=== PATIENT | female | born 1995 | race Caucasian/White ===

== ENCOUNTER 2025-02-20 16:38 | Emergency (ER) | payer OTHER, SELFPAY ==
[2025-02-20 16:47] VITALS: BP 112/74; PULSE 80; RESP 18; TEMP 36.6; O2SAT 98; BMI 22.1
--- NOTE | 2025-02-20 16:48 | ED.GENADULT ---
HPI - General Adult General Chief complaint: Allergic Reaction Stated complaint: allergic reaction Time Seen by Provider: 02/20/25 17:21 Source: patient Mode of arrival: ambulatory Limitations: no limitations History of Present Illness ED Provider: Harsh Torres DO HPI narrative: 29-year-old female with past medical history of seasonal allergies but no other allergies, otherwise healthy presents to the ED for concerns for an allergic reaction with tightening of the throat and voice changes shortly after eating Esau fruit for the 1st time, onset shortly prior to arrival. Patient took too fast acting cetirizine tablets with significant improvement. She did not administer epinephrine prior to arrival. She denies development of rash, wheezing, abdominal pain, vomiting or diarrhea. She states she feels significantly improved and has been able to tolerate p.o. fluids. Related Data Previous Rx's ?Medication ?Instructions ?Recorded epinephrine 0.3 mg/0.3 mL 0.3 mg (0.3 mL) IM Q10M PRN 02/20/25 injection, auto-injector (EpiPen anaphylaxis #2 ea 2-Dilan) Allergies Allergy/AdvReac Type Severity Reaction Status Date / Time jackfruit Allergy Swelling Uncoded 02/20/25 16:49 Review of Systems Review of Systems: Yes all other systems are reviewed and are negative PMFSH Social History Social History Advance Directives: No Advance Directives Information Provided: Yes Do you have a plan to hurt others: No Plan Physical Exam ED Vital Signs: Vital Signs - 24 hr 02/20/25 16:47 02/20/25 17:07 Temperature 97.9 F Pulse Rate 80 72 Respiratory Rate 18 Blood Pressure 112/74 107/80 Pulse Oximetry 98 99 Oxygen Delivery Method Room Air BMI result Body Mass Index 22.1 Constitutional: ?Alert, oriented, speaking in full sentences HEENT: ?Normocephalic, atraumatic. ?Moist mucous membranes, no edema of the lips, tongue, palate or uvula, Mallampati class 1 Eyes: ?PERRL, EOMI Neck: ?Supple, nontender, no stridor Chest: ?No chest wall tenderness Respiratory: ?Lungs clear to auscultation, no increased work of breathing Cardio: ?Regular rate and rhythm, no murmur, 2+ radial and DP pulses symmetrically GI: ?Soft, nondistended, nontender Back: ?Normal range of motion, nontender Skin: ?No rash, no lesions Neuro: ?Alert and oriented to person, place and time, moves all 4 extremities, no focal deficits Extremities: ?No swelling or tenderness, full range of motion Psych: ?Calm, alert and cooperative, appropriate behavior Course Course Course Narrative: RME, this is a rapid medical exam performed by Mark Swann please refer to primary provider for complete H&P- 29 year old female presents for evaluation of a possible allergic reaction. She has no known allergies. She ate a esau fruit for the first time prior to arrival. She took 2 Zyrtec. She has mild retropharyngeal erythema, but no significant edema. No stridor on exam. No facial edema. Plan for prednisone, Pepcid and observation Medications Administered Discontinued Medications Generic Name Dose Route Start Last Admin Trade Name Freq PRN Reason Stop Dose Admin Famotidine 20 mg 02/20/25 16:51 02/20/25 17:06 Famotidine 20 Mg Tablet PO 02/20/25 16:52 20 mg ONCE ONE Administration Prednisone 60 mg 02/20/25 16:51 02/20/25 17:05 Prednisone 20 Mg Tablet PO 02/20/25 16:52 60 mg ONCE ONE Administration Medical Decision Making Medical Decision Making MDM Narrative: This is a well-appearing, vitally stable patient presenting with signs and symptoms concerning for angioedema prior to arrival. She did not require epinephrine prior to arrival nor did she require here. There are no signs of anaphylaxis. She is breathing without difficulty and has no findings on exam. She received famotidine and prednisone here with continued improvement. We discussed avoiding Esau fruit in the future and following up with an entrepreneurship program director. Prescribed epinephrine and recommended continuation of cetirizine for any residual symptoms over the course of several days. She voices clear understanding to return with any recurrent concerning symptoms. Admission/Observation Consideration of admission/observation: Escalation of care including admission/observation considered Discharge Plan Discharge Clinical Impression: Allergic reaction Qualifiers: Encounter type: initial encounter Qualified Code(s): T78.40XA - Allergy, unspecified, initial encounter Patient Disposition: Home, Self-Care Instructions: General Allergic Reaction (ED), Allergy Testing (ED) Additional Instructions: Your symptoms improved without needing epinephrine. You can continue cetirizine daily if you have any residual symptoms. Please return immediately if you develop any tightening of your throat, sensation of swelling with difficulty breathing or swallowing or development of any other concerning symptoms including an itchy rash with difficulty breathing, abdominal pain, vomiting or diarrhea. If you develop these symptoms at home, administer the EpiPen immediately and call the ambulance. Otherwise follow up with an entrepreneurship program director for comprehensive testing. We do not have an entrepreneurship program director associated with [facility] but hears a number you can try. Please call search other numbers if you can not make an appointment with them. [facility] [address],[facility]?[phone]:[phone] Prescriptions: New epinephrine [EpiPen 2-Dilan] 0.3 mg/0.3 mL auto-injector 0.3 mg IM Q10M PRN (Reason: anaphylaxis) Qty: 2 0RF Rx Instructions: for 2 doses Referrals: [facility] [Provider Group] Print Language: Macedonian
[2025-02-20] MEDS: predniSONE 20 MG TABLET 60 MG PO (17:05)
[2025-02-20] MEDS: Famotidine 20 MG TABLET PO (17:06)
[2025-02-20 17:07] VITALS: BP 107/80; PULSE 72; O2SAT 99
[2025-02-20 18:00] VITALS: BP 110/68; PULSE 68; RESP 18; TEMP 36.7; O2SAT 97
== END 2025-02-20 18:02 | disposition home or self-care (01) ==
PROVIDERS: Emergency Provider Emergency Medicine
DX: L50.0 Allergic urticaria (principal)
CPT/HCPCS: 99283; 99284